=== PATIENT | male | born 1955 | race Caucasian/White ===

== ENCOUNTER 2020-06-18 10:40 | Emergency (ER) | payer OTHER ==
[~2020-06-18 10:40] MED LIST: ACETAMINOPHEN325 MG PO; ASPIRIN CHEWABL81 MG PO; ATORVASTATIN CA20 MG PO; BACLOFEN5 MG PO; BACTRIM DS TAB1 EACH PO; BENTYL10 MG PO; CARAFATE1 GM PO; CILOSTAZOL100 MG PO; CIPRO500 MG PO; CREON 12,000 U1 EACH PO; DITROPAN5 MG PO; FENOFIBRATE160 MG PO; FLAGYL500 MG PO; FLOMAX0.4 MG PO; FLONASE ALLER15.8 ML; GABAPENTIN300 MG PO; HABITROL7 MG TD; HCTZ25 MG PO; HUMALOG SQ; ISMO20 MG PO; LACTINEX1 EACH PO; METHOCARBAMOL750 MG PO; MICRO-K10 MEQ PO; NAPROSYN250 MG PO; NASAL SPRAY30 M1 INH; NEXIUM40 MG PO; NORCO 5-325 TA1 EAC1 PO; NORCO 5-325 TA1 EACH PO; PAROXETINE HCL30 MG PO; PRILOSEC20 MG PO; PROCTOZONE-HC 230 GM TOP; REMERON15 MG PO; TRESIBA FL100 UNIT/1 SQ; VENTOLIN HFA IN18 GM INH; VITAMIN D-32000 UNIT PO/SL; VITAMIN D2000 UNIT PO; ZOCOR40 MG PO; ZOFRAN4 MG PO; [UNRECOGNIZED DRUG - OTHER] SC
[2020-06-18 13:30] LABS: BASOPHIL 0.9 % (0-2); EOSINOPHIL 2.7 % (0-5); HCT 31.1 % (42.0-52.0); HGB 10.2 g/dl (13.2-18.0); LYMPHOCYTE 18.7 % (15-48); MCH 33.1 pg (25.0-31.0); MCHC 32.8 g/dL (32.0-36.0); MONOCYTE 7.8 % (0-12); MPV 11.4 fL (6.0-9.5); NEUTROPHIL 69.5 % (41-80); NRBC 0; PLT 127 K/uL (150-400); RBC 3.08 M/uL (4.70-6.00); RDW 16.4 % (11.5-14.0); WBC 6.9 K/uL (4.0-10.5)
[2020-06-18 13:35] LABS: INR 1.27 (0.9-1.2); PROTHROMBIN TIME 15.1 SECONDS (11.4-13.6)
[2020-06-18 13:51] LABS: ALBUMIN 1.8 g/dL (3.4-5.0); BILIRUBIN - TOTAL 1.8 mg/dL (0.2-1.0); BUN/CREAT RATIO (CALC) 17.7 RATIO; CREATININE 0.62 mg/dL (0.67-1.17); GLOBULIN (CALCULATION) 6.7 g/dL; POTASSIUM 3.9 mmol/L (3.5-5.1); TOTAL PROTEIN 8.5 g/dL (6.4-8.2)
== END 2020-06-18 15:36 | disposition home or self-care (01) ==
LOC: FER 10:40
PROVIDERS: Emergency Medicine
PROC: 0W9G3ZX Drainage of Peritoneal Cavity, Percutaneous Approach, Diagnostic (ICD-10-PCS; principal; 2020-06-18)
DX: R18.8 Other ascites (principal); Z88.0 Allergy status to penicillin; Z88.8 Allergy status to other drugs, medicaments and biological substances; Z91.041 Radiographic dye allergy status; Z91.048 Other nonmedicinal substance allergy status
CPT/HCPCS: 36415; 71045; 80053; 83880; 85025; 85610; 85730; 93005

== ENCOUNTER 2020-06-21 20:14 | Emergency (ER) | payer OTHER ==
[2020-06-21 21:26] LABS: BASOPHIL 0.8 % (0-2); EOSINOPHIL 2.2 % (0-5); HCT 35.1 % (42.0-52.0); HGB 11.7 g/dl (13.2-18.0); LYMPHOCYTE 18.6 % (15-48); MCH 33.6 pg (25.0-31.0); MCHC 33.3 g/dL (32.0-36.0); MCV 100.9 fL (78.0-100.0); MONOCYTE 10.5 % (0-12); MPV 11.9 fL (6.0-9.5); NEUTROPHIL 67.1 % (41-80); NRBC 0; PLT 149 K/uL (150-400); RBC 3.48 M/uL (4.70-6.00); RDW 16.5 % (11.5-14.0); WBC 7.7 K/uL (4.0-10.5)
[2020-06-21 21:34] LABS: INR 1.15 (0.9-1.2)
[2020-06-21 21:35] LABS: PTT 39.2 SECONDS (22.2-34.7)
[2020-06-21 21:42] LABS: LACTIC ACID 1.1 mmol/L (0.4-1.9)
[2020-06-21 21:50] LABS: ALBUMIN 1.8 g/dL (3.4-5.0); BILIRUBIN - TOTAL 2.2 mg/dL (0.2-1.0); BUN/CREAT RATIO (CALC) 20.7 RATIO; CREATININE 0.58 mg/dL (0.67-1.17); GLOBULIN (CALCULATION) 7.9 g/dL; POTASSIUM 3.6 mmol/L (3.5-5.1); TOTAL PROTEIN 9.7 g/dL (6.4-8.2)
== END 2020-06-22 06:11 | disposition other institution (70) ==
LOC: FER 20:14
PROVIDERS: Emergency Medicine Emergency Medical Services
DX: K92.1 Melena (principal); K74.60 Unspecified cirrhosis of liver; K64.4 Residual hemorrhoidal skin tags; E11.9 Type 2 diabetes mellitus without complications; J44.9 Chronic obstructive pulmonary disease, unspecified; F17.290 Nicotine dependence, other tobacco product, uncomplicated; Z79.4 Long term (current) use of insulin; Z90.49 Acquired absence of other specified parts of digestive tract; Z88.0 Allergy status to penicillin; Z88.8 Allergy status to other drugs, medicaments and biological substances; Z91.041 Radiographic dye allergy status; Z98.890 Other specified postprocedural states
CPT/HCPCS: 36415; 80053; 82150; 82248; 83605; 83690; 85025; 85610; 85730; 86850; 86900; 86901; 93005; C9113; J1170; J2270; J2405; J7030

== ENCOUNTER 2020-08-01 13:37 | Emergency (ER) | payer OTHER ==
[2020-08-01 15:13] LABS: BASOPHIL 0.6 % (0-2); EOSINOPHIL 1.5 % (0-5); HCT 31.7 % (42.0-52.0); HGB 10.6 g/dl (13.2-18.0); MCH 32.9 pg (25.0-31.0); MCHC 33.4 g/dL (32.0-36.0); MCV 98.4 fL (78.0-100.0); MONOCYTE 8.5 % (0-12); MPV 11.6 fL (6.0-9.5); NEUTROPHIL 74.9 % (41-80); NRBC 0; PLT 123 K/uL (150-400); RBC 3.22 M/uL (4.70-6.00); RDW 17.6 % (11.5-14.0); WBC 7.9 K/uL (4.0-10.5)
[2020-08-01 15:19] LABS: BILIRUBIN 2+ mg/dL (NEGATIVE); BLOOD 1+ Ery/uL (NEGATIVE); CLARITY CLEAR (CLEAR); GLUCOSE (U) TRACE mg/dL (NORMAL); LEUKOCYTES NEGATIVE Leu/uL (NEGATIVE); NITRITE NEGATIVE (NEGATIVE); PROTEIN NEGATIVE (NEGATIVE); SPECIFIC GRAVITY 1.025 (1.001-1.030); pH 5.5 (5.0-9.0)
[2020-08-01 15:21] LABS: COLOR AMBER (YELLOW)
[2020-08-01 15:23] LABS: CALCIUM OXALATE CRYSTALS TRACE; URINARY WBC RARE
[2020-08-01 15:35] LABS: LACTIC ACID 2.1 mmol/L (0.4-1.9)
[2020-08-01 15:58] LABS: ALBUMIN 1.8 g/dL (3.4-5.0); BILIRUBIN - TOTAL 4.5 mg/dL (0.2-1.0); BUN/CREAT RATIO (CALC) 13.4 RATIO; CREATININE 0.67 mg/dL (0.67-1.17); GLOBULIN (CALCULATION) 7.7 g/dL; POTASSIUM 3.4 mmol/L (3.5-5.1); TOTAL PROTEIN 9.5 g/dL (6.4-8.2)
== END 2020-08-01 20:40 | disposition other institution (70) ==
LOC: FER 13:37
PROVIDERS: Emergency Medicine
DX: K56.7 Ileus, unspecified (principal); E87.1 Hypo-osmolality and hyponatremia; K74.60 Unspecified cirrhosis of liver; K76.6 Portal hypertension; E11.9 Type 2 diabetes mellitus without complications; I10 Essential (primary) hypertension; J44.9 Chronic obstructive pulmonary disease, unspecified; F17.200 Nicotine dependence, unspecified, uncomplicated; Z87.19 Personal history of other diseases of the digestive system; Z95.5 Presence of coronary angioplasty implant and graft; Z88.0 Allergy status to penicillin; Z88.8 Allergy status to other drugs, medicaments and biological substances; Z91.041 Radiographic dye allergy status; Z20.822 Contact with and (suspected) exposure to COVID-19
CPT/HCPCS: 36415; 80053; 81001; 83605; 83690; 85025; 87040; 93005; J1170; J2270; J2405; U0002

== ENCOUNTER 2020-10-05 10:45 | Emergency (ER) | payer OTHER ==
[2020-10-05 13:18] LABS: BILIRUBIN 1+ mg/dL (NEGATIVE); BLOOD NEGATIVE Ery/uL (NEGATIVE); CLARITY CLEAR (CLEAR); COLOR YELLOW (YELLOW); GLUCOSE (U) TRACE mg/dL (NORMAL); LEUKOCYTES NEGATIVE Leu/uL (NEGATIVE); NITRITE NEGATIVE (NEGATIVE); PROTEIN NEGATIVE (NEGATIVE); SPECIFIC GRAVITY 1.015 (1.001-1.030)
[2020-10-05 14:16] LABS: BASOPHIL 0.8 % (0-2); EOSINOPHIL 0.8 % (0-5); HCT 29.8 % (42.0-52.0); LYMPHOCYTE 9.8 % (15-48); MCH 33.9 pg (25.0-31.0); MCHC 33.6 g/dL (32.0-36.0); MPV 11.6 fL (6.0-9.5); NEUTROPHIL 80.8 % (41-80); NRBC 0; PLT 244 K/uL (150-400); RBC 2.95 M/uL (4.70-6.00); RDW 15.3 % (11.5-14.0); WBC 13.3 K/uL (4.0-10.5)
[2020-10-05 14:27] LABS: BILIRUBIN - TOTAL 2.4 mg/dL (0.2-1.0); BUN/CREAT RATIO (CALC) 15.7 RATIO; CREATININE 0.7 mg/dL (0.67-1.17); GLOBULIN (CALCULATION) 6.7 g/dL; POTASSIUM 4.6 mmol/L (3.5-5.1); TOTAL PROTEIN 9.7 g/dL (6.4-8.2)
== END 2020-10-05 20:50 | disposition other institution (70) ==
LOC: FER 10:45
PROVIDERS: Emergency Medicine
DX: R33.9 Retention of urine, unspecified (principal); R10.32 Left lower quadrant pain; F17.290 Nicotine dependence, other tobacco product, uncomplicated; Z88.0 Allergy status to penicillin; Z87.19 Personal history of other diseases of the digestive system
CPT/HCPCS: 36415; 80053; 81003; 83690; 85025; 96374; 96375; 96376; J2270; J2405